=== PATIENT | male | born 1980 | race Caucasian/White ===

== ENCOUNTER → 2018-04-22 | Outpatient (CLI) | payer OTHER ==
[~2018-04-22] MED LIST: CELE200C PO; DICL100G19 TP; GABA600T2 PO; MORP60TA PO; OXYC20TA2 PO; TRAM50TA2 PO
== END | disposition home or self-care (01) ==
LOC: RAD 16:52
PROVIDERS: ATTEND Physician Assistant Medical
DX: M54.17 Radiculopathy, lumbosacral region (principal); M41.80 Other forms of scoliosis, site unspecified
CPT/HCPCS: 72110